=== PATIENT | female | born 1955 | race Two or more races ===

== ENCOUNTER 2024-08-04 13:40 | Outpatient (AMB) | payer OTHER, SELFPAY ==
[2024-08-04 13:48] VITALS: BP 125/85; PULSE 83; RESP 18; TEMP 36.7; O2SAT 94; BMI 32.1
--- NOTE | 2024-08-04 13:48 | GSCOFFNT_ITS ---
Vital Signs - [facility] 08/04/24 13:48 Height 1.6 m Height Method Stated Weight 82.1 kg Weight Measurement Method Standing Scale BMI 32.1 BP 125/85 H Blood Pressure Source Automatic Cuff Blood Pressure Location Left Upper Arm Position Sitting Respiration 18 Pulse 83 Pulse Source Monitor Temp 98.0 F Temp Source Temporal Artery Scan Pulse Oximetry (%) 94 L Oxygen Delivery Method Room Air Med/Allergies Allergies & Medications Allergies morphine Allergy (Verified 08/04/24 13:54) Medication Reconciliation Unobtainable 08/04/24 [History Confirmed 08/04/24] MA Intake Visit Data Collection New Patient or Established: New Patient (never been to [facility]) Seen by Clinical Staff ONLY (RN/MA): No Reason for Visit:: RECTAL PAIN Pain Present Currently: No PCP or OBGYN visit in last 3 months: Yes Hx Now: No Do You Feel Safe at Home: Yes Authorities Contacted: N/A Smoking Status Smoking Status: Never smoker Immunization / Flu Flu Vaccine in the Last 12 Months: No Flu Vaccine Exclusion Criteria: Refused by Patient Past Medical History Social History SMOKING STATUS: Smoking status: Never smoker HPI HPI Narrative 68F referred for anal stricture. Pt states that she had hemorrhoidectomy for rectal bleeding in 2019 and since then has had difficulty defecating, tending to have thin stools; she followed up with her surgeon Dr Corbin in [place] and he determined she likely had an anal stricture and recommended dilation at home however pt felt uncomfortable doing so prompting her referral to me. She states that over the years she has developed a routine for having BMs, she now tends to have 4 BMs throughout the morning after which she feels fully evacuated. Pt reports that her BMs are soft and do not require straining but she just feels that the mechanics of her anus are not functioning, like the door won't open . She recently underwent colonoscopy due to a finding of colonic thickening on CT (which was done for surveillance of renal cell CA) and was told that she had polyps, diverticulosis and internal hemorrhoids but has a follow up with the GI to discuss in more detail in the coming weeks Pt states her appetite is intact and she denies any further rectal bleeding PMH: HTN, GERD, migraines, Renal cell CA PSHx: Hemorrhoidectomy in 2019, Csection, cholecystectomy, adrenalectomy and ?partial nephrectomy for RCC Meds: Lisinopril, omeprazole, rizatriptan Allergies: NKDA Family hx: No known CRC ROS Review of Systems Systems Reviewed: All systems reviewed, normal except as documented Objective/Exam General General Appearance: alert, cooperative and well groomed Resp Respiratory exam: Absent respiratory distress Assessment & Plan Diagnosis / Problem List (1) Anal stricture: Status: Acute Assessment & Plan: 68F s/p hemorrhoidectomy in 2020 with signs and symptoms of postoperative anal stricture. I explained that surgical options could include intraoperative dilat ation, which would likely require serial dilatations versus sphincterotomy, which confers a risk of incontinence. Pt strongly prefers not to have surgery and feels that she is able to manage her symptoms well, but is encouraged to reach out if anything changes or if she would like to discuss further Advanced Care Planning Advance care planning discussed with:: patient Office Procedures GNS Level of Care Nursing/Assessment Patient Status: Initial/New Patient Nursing Assessment/Reassesment: Medication Reconciliation, Update PMH in EMR and Vital Signs Coordination of Care: Complex Care and Chronic Disease 1-5, Consent,records obtained, informed consent, Education Simp Pt/Fam, Results/Orders obtained and Staff clarify orders New Patient Charge New Patient Point Assignment: [id number] New Patient Point Charge: [employer] Level 3 ([id number]) Patient Portal Questionaires Social History Tobacco History Smoking Status: Never smoker Domestic Abuse History Do You Feel Safe at Home: Yes Review of Systems Report any current symptoms Only answer those that you have currently: Past Medical History Past Medical History Have you ever been diagnosed with any of the following:
== END 2024-08-04 14:27 | disposition home or self-care (01) ==
PROVIDERS: Supervising Provider Surgery; Visit Provider Surgery
DX: K62.4 Stenosis of anus and rectum (principal); I10 Essential (primary) hypertension; K21.9 Gastro-esophageal reflux disease without esophagitis
CPT/HCPCS: 99203; G0463